=== PATIENT | female | born 1985 | race African-American/Black ===

== ENCOUNTER 2023-01-25 08:55 | Emergency (ER) | payer SELFPAY ==
[~2023-01-25] VITALS: Ht 167.6 cm; Wt 80.0 kg
[2023-01-25 10:00] LABS: HEMATOCRIT. 37.8 % (36.0-48.0); HEMOGLOBIN. 11.9 g/dL (12.0-16.0); MEAN CORPUSCULAR HEMOGLOBIN 25.7 pg (28.0-32.0); MEAN CORPUSCULAR VOLUME 81.5 fL (81.0-99.0); MEAN PLATELET VOLUME 8.1 fl (7.4-10.4); PLATELET 528 x1000/uL (130-400); RED BLOOD CELL COUNT 4.63 mill/uL (4.2-5.4); RED CELL DISTRIBUTION WIDTH 18.5 % (11.6-14.6)
[2023-01-25 10:09] LABS: CHLORIDE 111 mEq/L (98-107)
[2023-01-25 10:19] LABS: ETHANOL BLOOD < 10 mg/dL
[2023-01-25 10:31] LABS: NUCLEATED RED BLOOD CELLS 3 /100 WBC; PLATELET ESTIMATE INCREASED
[2023-01-25] MEDS ORDERED: ASPIRIN 325MG EC TABLET PO ONE (10:45)
[2023-01-25] MEDS ORDERED: FUROSEMIDE 40MG/4ML VIAL IVP NR (11:15)
[2023-01-25 12:55] VITALS: BP 137/88
[2023-01-25 14:30] LABS: INR 1.1; PROTHROMBIN TIME 11.9 sec (9.6-11.0)
[2023-01-25] MEDS ORDERED: DOCUSATE SODIUM 100MG CAPSULE PO PRN (15:00)
[2023-01-25] MEDS ORDERED: IPRATROPIUM/ALBUTEROL 0.5-3(2.5)MG/3ML NEB NEB PRN (15:00)
[2023-01-25] MEDS ORDERED: NITROGLYCERIN 0.4MG TABLET SL SL PRN (15:00)
[2023-01-25] MEDS ORDERED: CLONIDINE 0.1MG TABLET PO PRN (15:00)
[2023-01-25] MEDS ORDERED: GUAIFENESIN 200MG/10ML SUGAR FREE UDC PO PRN (15:00)
[2023-01-25] MEDS ORDERED: ACETAMINOPHEN 325MG TABLET PO PRN ×2 (15:00)
[2023-01-25] MEDS ORDERED: ONDANSETRON HCL 4MG/2ML INJ IV PRN (15:00)
[2023-01-25] MEDS ORDERED: MAGNESIUM/ALUMINUM HYDROXIDE/SIMETHICONE 30ML UDC PO PRN (15:00)
[2023-01-25] MEDS ORDERED: KETOROLAC 15MG/ML VIAL IV PRN (15:00)
[2023-01-25] MEDS ORDERED: ENOXAPARIN 80MG/0.8ML SYR SUBCUT NR (15:30)
[2023-01-25 15:58] LABS: T4 FREE 1.21 ng/dL (0.76-1.46)
[2023-01-25 16:18] LABS: VITAMIN B12 SERUM 566 pg/mL (211-911)
[2023-01-25] MEDS ORDERED: FUROSEMIDE 40MG/4ML VIAL IVP SCH (18:00)
[2023-01-25] MEDS ORDERED: SPIRONOLACTONE 25MG TABLET PO SCH (21:00)
[2023-01-25] MEDS ORDERED: FAMOTIDINE 20MG TABLET PO SCH (21:00)
[2023-01-25] MEDS ORDERED: ZOLPIDEM TARTRATE 5MG TABLET PO PRN (21:00)
[2023-01-26] MEDS ORDERED: ENOXAPARIN 40MG/0.4ML SYR SUBCUT SCH (09:00)
[2023-01-26] MEDS ORDERED: ASPIRIN 325MG EC TABLET PO SCH (09:00)
[2023-01-26] MEDS ORDERED: LOSARTAN POTASSIUM 50 MG TABLET PO SCH (09:00)
== END 2023-01-25 14:51 | disposition left against medical advice (07) ==
LOC: EDBD 09:38 → ER 09:38 → CANBEDREQ 15:03
DX: R77.8 Other specified abnormalities of plasma proteins (principal); E11.9 Type 2 diabetes mellitus without complications
CPT/HCPCS: 36415; 71045; 80053; 80061; 80320; 82607; 82746; 83036; 83540; 83550; 83880; 84145; 84439; 84443; 84484; 85025; 85379; 85610; 93005; 93970; 96374; 99291; J1940; G0480